=== PATIENT | male | born 2000 | race Two or more races ===

== ENCOUNTER 2022-10-02 08:27 | Outpatient (CLI) | payer OTHER | END 2022-10-02 09:19 | disposition home or self-care (01) | LOC: SONOGRAMA 08:27 | PROVIDERS: ATTEND Specialist | DX: K42.9 Umbilical hernia without obstruction or gangrene (principal) ==

== ENCOUNTER 2022-11-26 08:42 | Day surgery (SDC) | payer OTHER ==
[~2022-11-26 08:42] MED LIST: SIMVAST PO; VYVANSE40 MG PO
[2022-11-26] MEDS ORDERED: TRAMADOL HCL50 MG PO (11:13)
[2022-11-26] MEDS ORDERED: TYLENOL ARTHRI650 MG PO (11:13)
[2022-11-26] MEDS ORDERED: KETO10TA2 PO (11:13)
[2022-11-26] MEDS ORDERED: MIRALAX17 GM PO (11:13)
== END 2022-11-26 15:40 | disposition home or self-care (01) ==
LOC: CIR.AMB 08:42
PROVIDERS: ATTEND Surgery
DX: K43.9 Ventral hernia without obstruction or gangrene (principal); Z20.822 Contact with and (suspected) exposure to COVID-19; E78.49 Other hyperlipidemia